=== PATIENT | female | born 1975 | race Caucasian/White ===

== ENCOUNTER → 2021-02-05 13:42 | Outpatient (CLI) | payer MEDICAID, SELFPAY ==
[2021-02-05 13:07] VITALS: BMI 24.8
[2021-02-05 16:09] LABS: ALB/GLOB Ratio 1.1 RATIO (0.9-2.4); AST(SGOT) 16 U/L (15-37); Alanine Aminotransfer ALT/SGPT 22 U/L (13-56); Alkaline Phosphatase 68 U/L (45-117); Anion Gap 7 (5-15); BUN 21 mg/dL (7-18); BUN/Creat Ratio 24.3 RATIO (10-20); Chloride 104 mmol/L (98-107); Creatinine, Serum 0.86 mg/dL (0.55-1.02); EST Glomerular Filtration Rate 76 mL/min (>60); Est Glom Filt Rate - Afr Amer 92 mL/min (>60); Estradiol 120.5 pg/mL; Follicle Stimulating Hormone 2.3 mIU/mL; Globulin 3.7 g/dL (2.2-4.2); Glucose 76 mg/dL (74-106); Luteinizing Hormone 0.9 mIU/mL; Potassium 3.8 mmol/L (3.5-5.1); Protein, Total 7.7 g/dL (6.4-8.2); Sodium Level 136 mmol/L (136-145); Thyroid Stim Hormone (TSH) 1.33 uIU/mL (0.358-3.74)
[2021-02-07 13:36] LABS: Thyroid Peroxidase AB < 9 IU/mL (0-34)
== END ==
PROVIDERS: PCP Family Medicine; Referring Provider Internal Medicine Endocrinology, Diabetes & Metabolism; Visit Provider Internal Medicine Endocrinology, Diabetes & Metabolism
DX: N91.5 Oligomenorrhea, unspecified (principal); R55 Syncope and collapse
CPT/HCPCS: 36415; 80053; 82533; 82670; 83001; 83002; 84443; 86376